=== PATIENT | male | born 1985 | race African-American/Black ===

== ENCOUNTER 2017-10-11 17:38 | Emergency (ER) | payer SELFPAY ==
[2017-10-11] MEDS ORDERED: Ketorolac Tromethamine 60 MG/2 ML VIAL ONE (20:06)
[2017-10-11] MEDS ORDERED: Cyclobenzaprine 10 MG TAB ONE (20:07)
== END 2017-10-11 20:32 | disposition home or self-care (01) ==
LOC: ERS 17:38
DX: M54.6 Pain in thoracic spine (principal); V43.62XA Car passenger injured in collision with other type car in traffic accident, initial encounter
CPT/HCPCS: 96372; J1885

== ENCOUNTER 2018-04-10 19:40 | Emergency (ER) | payer SELFPAY | END 2018-04-10 21:29 | disposition left against medical advice (07) | LOC: ERS 19:40 | DX: Z53.21 Procedure and treatment not carried out due to patient leaving prior to being seen by health care provider (principal) ==